=== PATIENT | male | born 1985 | race Native Hawaiian/Other Pacific Islander ===

== ENCOUNTER 2016-06-18 22:43 | Observation (INO) | payer OTHER ==
[~2016-06-18] VITALS: Ht 175.3 cm; Wt 70.8 kg
[2016-06-18 23:27] VITALS: BP 143/90; TEMP 98.8
[2016-06-19 01:00] LABS: PLATELET COUNT 213 K/uL (142-355)
[2016-06-19 01:07] LABS: POTASSIUM 4.1 mmol/L (3.6-5.2); SODIUM 136 mmol/L (136-145)
[2016-06-19 05:06] VITALS: BP 125/63; TEMP 99.1; Ht 175.3 cm; Wt 70.8 kg
[2016-06-19 06:17] LABS: PLATELET COUNT 194 K/uL (142-355)
[2016-06-19 06:38] LABS: POTASSIUM 4.1 mmol/L (3.6-5.2); SODIUM 136 mmol/L (136-145)
[2016-06-19 08:13] VITALS: BP 112/60; BP 114/45; TEMP 98.3
[2016-06-19 12:00] VITALS: BP 117/73; TEMP 99.2
[2016-06-19 16:00] VITALS: BP 110/69; TEMP 98.3
[2016-06-19 20:49] VITALS: BP 106/56; BP 125/72; TEMP 97.6; TEMP 98.5
[2016-06-19 23:58] VITALS: BP 124/71; TEMP 98.9
[2016-06-20 04:00] VITALS: BP 130/71; TEMP 98
[2016-06-20 06:38] LABS: PLATELET COUNT 177 K/uL (142-355)
[2016-06-20 06:46] LABS: POTASSIUM 3.8 mmol/L (3.6-5.2); SODIUM 134 mmol/L (136-145)
[2016-06-20 07:48] VITALS: BP 104/69; TEMP 98
[2016-06-20 11:56] VITALS: BP 114/72; TEMP 98
== END 2016-06-20 13:35 | disposition home or self-care (01) ==
LOC: ED 22:43 → MED/SURG 06-19 03:45
PROVIDERS: Emergency Medicine; Internal Medicine; ADMIT Specialist
DX: R10.0 Acute abdomen (principal); R11.2 Nausea with vomiting, unspecified; D72.828 Other elevated white blood cell count; E86.9 Volume depletion, unspecified
CPT/HCPCS: 36415; 80048; 80053; 81000; 82150; 83690; 83735; 85027; 86318; 96361; 96374; 99220; 99284; G0378; J2270; J2405; Q9963

== ENCOUNTER 2018-06-03 08:14 | Emergency (ER) | payer OTHER ==
[~2018-06-03] VITALS: Ht 175.3 cm; Wt 74.8 kg
[2018-06-03 08:23] VITALS: TEMP 98.4
[2018-06-03 09:45] LABS: PLATELET COUNT 238 K/uL (142-355)
[2018-06-03 11:04] VITALS: BP 128/64
== END 2018-06-03 11:06 | disposition home or self-care (01) ==
LOC: ED 08:14
PROVIDERS: Family Medicine
DX: R59.0 Localized enlarged lymph nodes (principal)
CPT/HCPCS: 36415; 85027; 86308; 87651; 96372; 99283; J0696; J2175; J2550

== ENCOUNTER 2021-06-23 07:18 | Emergency (ER) | payer OTHER ==
[~2021-06-23] VITALS: Ht 175.3 cm; Wt 78.9 kg
[2021-06-23 07:23] VITALS: TEMP 98.9
[2021-06-23 08:10] LABS: PLATELET COUNT 260 K/uL (142-355)
[2021-06-23 08:20] LABS: POTASSIUM 4.1 mmol/L (3.6-5.2)
[2021-06-23 09:48] VITALS: BP 148/96
== END 2021-06-23 09:48 | disposition home or self-care (01) ==
LOC: ED 07:18
PROVIDERS: Emergency Medicine
DX: R07.89 Other chest pain (principal)
CPT/HCPCS: 36415; 80053; 80307; 81000; 84484; 85027; 93005; 96374; 96375; 99284; J1885; J2405

== ENCOUNTER 2021-09-30 18:46 | Emergency (ER) | payer OTHER ==
[~2021-09-30] VITALS: Ht 175.3 cm; Wt 78.0 kg
[2021-09-30 19:32] LABS: PLATELET COUNT 244 K/uL (142-355)
[2021-09-30 19:49] LABS: POTASSIUM 3.9 mmol/L (3.6-5.2)
[2021-09-30 20:55] VITALS: BP 161/95; TEMP 98.5
== END 2021-09-30 20:55 | disposition short-term general hospital (02) ==
LOC: ED 18:46
PROVIDERS: Emergency Medicine
DX: K35.890 Other acute appendicitis without perforation or gangrene (principal); Z11.52 Encounter for screening for COVID-19
CPT/HCPCS: 36415; 80053; 81000; 83690; 85027; 87635; 96360; 96365; 96375; 96376; 99284; J1885; J2270; J2405; J2543; Q9963; U0003

== ENCOUNTER 2022-09-14 21:01 | Emergency (ER) | payer OTHER ==
[~2022-09-14] VITALS: Ht 175.3 cm; Wt 72.1 kg
[2022-09-14 21:39] LABS: PLATELET COUNT 225 K/uL (142-355)
[2022-09-14 21:40] LABS: POTASSIUM 3.6 mmol/L (3.6-5.2)
[2022-09-14 22:04] LABS: PARTIAL THROMBOPLASTIN TIME 27.9 SECONDS (24.5-33.6)
[2022-09-14 23:18] VITALS: BP 129/86; TEMP 100
== END 2022-09-14 22:55 | disposition home or self-care (01) ==
LOC: ED 21:01
PROVIDERS: Emergency Medicine
DX: R07.89 Other chest pain (principal); F41.8 Other specified anxiety disorders; I10 Essential (primary) hypertension; F17.210 Nicotine dependence, cigarettes, uncomplicated
CPT/HCPCS: 36415; 80053; 80307; 81002; 82550; 83880; 84484; 85027; 85379; 85610; 85730; 93005; 96374; 96375; 99284; J2270; J2405